=== PATIENT | male | born 1975 | race Caucasian/White ===

== ENCOUNTER 2024-07-20 20:55 | Emergency (ER) | payer SELFPAY | END 2024-07-21 01:16 | disposition left against medical advice (07) | LOC: ER 21:00 | DX: F03.90 Unspecified dementia, unspecified severity, without behavioral disturbance, psychotic disturbance, mood disturbance, and anxiety (principal); Z53.21 Procedure and treatment not carried out due to patient leaving prior to being seen by health care provider ==

== ENCOUNTER 2024-07-21 19:57 | Emergency (ER) | payer SELFPAY ==
[~2024-07-21] VITALS: Ht 185.4 cm; Wt 81.6 kg
[2024-07-21 23:00] LABS: AMPHETAMINE, URINE NEGATIVE (NEGATIVE); BARBITURATE, URINE NEGATIVE (NEGATIVE); BENZODIAZEPINE, URINE NEGATIVE (NEGATIVE); COCCAINE, URINE NEGATIVE (NEGATIVE); OPIATE, URINE NEGATIVE (NEGATIVE); PHENCYCLIDINE SCREEN,URINE NEGATIVE (NEGATIVE)
[2024-07-21 23:02] LABS: CANNABINOID, URINE POSITIVE (NEGATIVE)
[2024-07-22 00:01] VITALS: BP 150/99; TEMP 98; O2SAT 98
== END 2024-07-22 00:01 | disposition home or self-care (01) ==
LOC: ER 19:59
DX: F12.90 Cannabis use, unspecified, uncomplicated (principal)